=== PATIENT | female | born 1990 | race African-American/Black ===

== ENCOUNTER 2022-09-20 13:02 | Emergency (ER) | payer MEDICAID, OTHER ==
[~2022-09-20] VITALS: Ht 167.6 cm; Wt 91.0 kg
[2022-09-20 13:17] VITALS: BP 137/85
[2022-09-20] MEDS ORDERED: MUPI1OIN4 TP (14:53)
[2022-09-20] MEDS ORDERED: TC025C15 TP (14:55)
== END 2022-09-20 15:09 | disposition home or self-care (01) ==
LOC: ER 13:54
DX: Z48.00 Encounter for change or removal of nonsurgical wound dressing (principal)
CPT/HCPCS: 99283